=== PATIENT | female | born 1955 | race Caucasian/White ===

== ENCOUNTER 2018-09-06 09:34 | Outpatient (CLI) | payer OTHER ==
--- NOTE | 2018-09-06 10:20 | RAD ---
TWO VIEWS OF THE CHEST: Comparison: None. History: Dyspnea. FINDINGS: Two views of the chest shows normal sized cardiomediastinal silhouette. Biapical pleural thickening i s seen. There is no evidence of consolidation, mass, or pleural effusions. Mild degenerative changes are seen in the spine. IMPRESSION: No evidence of acute cardiopulmonary disease. POS: [facility]
== END 2018-09-06 09:35 | disposition home or self-care (01) ==
LOC: RAD 09:34
PROVIDERS: ATTEND Internal Medicine Critical Care Medicine
DX: R06.00 Dyspnea, unspecified (principal)
CPT/HCPCS: 71046

== ENCOUNTER 2020-03-31 11:00 | Outpatient (CLI) | payer MEDICARE, OTHER ==
--- NOTE | 2020-04-02 08:52 | MMO ---
Bilateral MAMMO Bilat Screen DDI+DOMONIQUE. CLINICAL HISTORY: Patient is 64 years old and is seen for screening. The patient has no family history of breast cancer. The patient has no personal history of cancer. VIEWS: The views performed were: bilateral craniocaudal with tomosynthesis and bilateral mediolateral oblique with tomosynthesis. FILMS COMPARED: The present examination has been compared to a prior imaging study performed at This study has been interpreted with the assistance of computer-aided detection. MAMMOGRAM FINDINGS: There are scattered fibroglandular densities. There are stable benign appearing calcifications seen in both breasts. There are no suspicious masses, suspicious calcifications, or new areas of architectural distortion. IMPRESSION: THERE IS NO MAMMOGRAPHIC EVIDENCE OF MALIGNANCY. A ROUTINE FOLLOW-UP MAMMOGRAM IN 1 YEAR IS RECOMMENDED. THE RESULTS OF THIS EXAM WERE SENT TO THE PATIENT. ACR BI-RADS Category 2 - Benign finding MAMMOGRAPHY NOTE: 1. A negative mammogram report should not delay a biopsy if a dominant of clinically suspicious mass is present. 2. Approximately 10% to 15% of breast cancers are not detected by mammography. 3. Adenosis and dense breasts may obscure an underlying neoplasm. Reported by: FILOMENA HOOPER MD Electonically Signed: [id number]
== END 2020-03-31 11:01 | disposition home or self-care (01) ==
LOC: BICMAMMO 11:00
PROVIDERS: ATTEND Family Medicine
DX: Z12.31 Encounter for screening mammogram for malignant neoplasm of breast (principal)
CPT/HCPCS: 77063; 77067

== ENCOUNTER 2020-04-28 13:31 | Outpatient (CLI) | payer MEDICARE, OTHER ==
--- NOTE | 2020-04-28 14:06 | BD ---
EXAM: Bone densitometry using DEXA HISTORY: 64 yo female. Screening for postmenopausal osteoporosis FINDINGS: L1--bone mineral density 0.894 g/sq cm; T score -0.9 ; Z score 0.7 L2--bone mineral density 1.061 g/sq cm; T score 0.3 ; Z score 2.1 L3--bone mineral density 1.118 g/sq cm; T score 0.3 ; Z score 2.2 L4--bone mineral density 1.013 g/sq cm; T score -0.4 ; Z score 1.5 Total L1-L4--bone mineral density 1.027 g/sq cm; T score -0.2 ; Z score 1.6 Left femoral neck--bone mineral density0.673; T score -1.6 ; Z score 0.0 Total proximal left femur--bone mineral density 0.831; T score -0.9 ; Z score 0.4 The 10 year fracture risk for a major osteoporotic fracture is 15% and for a hip fracture is 1.7%. IMPRESSION: Osteopenia
== END 2020-04-28 13:32 | disposition home or self-care (01) ==
LOC: BICMAMMO 13:31
PROVIDERS: ATTEND Internal Medicine Rheumatology
DX: M81.0 Age-related osteoporosis without current pathological fracture (principal); M85.852 Other specified disorders of bone density and structure, left thigh
CPT/HCPCS: 77080

== ENCOUNTER 2022-10-18 11:39 | Outpatient (CLI) | payer MEDICARE, OTHER | END 2022-10-18 11:40 | disposition home or self-care (01) | LOC: BICMAMMO 11:39 | PROVIDERS: ATTEND Family Medicine | DX: Z12.31 Encounter for screening mammogram for malignant neoplasm of breast (principal); Z85.41 Personal history of malignant neoplasm of cervix uteri | CPT/HCPCS: 77063; 77067 ==